=== PATIENT | female | born 1955 | race African-American/Black ===

== ENCOUNTER 2016-12-26 20:46 | Emergency (ER) | payer SELFPAY ==
[~2016-12-26] VITALS: Ht 165.1 cm; Wt 59.0 kg
--- NOTE | 2016-12-26 21:03 | PHYS DOC ---
General Chief Complaint: HYPERTENSION Stated Complaint: ELEV BLOOD PRESURE Time Seen by MD: 20:54 Source: patient Problems: History of Present Illness Initial Comments Patient here for headache and high blood pressure. Patient actually was seen by this physician previously for high blood pressure and headache. She is normally followed at [facility]. She said she was briefly started on carvedilol 3 days ago [place] 9 blood pressure. She says this morning she developed a headache parents located in the front frontal scalp. This persisted over the course of the day and really has not gotten worse, but is not change. She did take her blood pressure home is 188 for the top number. She does remember the bottom number. She had been given some clonidine during her last ER visit to use for blood pressure gr 180 systolic 110 diastolic, but she says she didn't take it because she didn't want to mix with a 5 mg, 325 mg Lortab she had taken at home for the headache. At this time, she says her headache is persistent. There is no visual or speech changes. There is no fever chills URI symptoms or cough. There's no chest pain or shortness of breath. She's had some nausea and decreased appetite today. She did try to eat earlier this evening and has vomited twice since. She's not had anything to eat or drink since. She has no abdominal pain. There is no change amount of bladder habits. She denies any focal extremity or neurologic complaints. Patient did take a Lortab at home for her headache as previously described. She wonders if this could've caused her vomiting. She did not take her previously prescribed clonidine for exacerbations blood pressure. She notes no other increasing or decreasing factors. There is no history of head injury or trauma. Patient's past medical issues" for hyperthyroidism as well as hypertension. She is on methimazole to suppress thyroid function and she's claims compliance. She is a nonsmoker and nonuser of ethanol. Allergies: Coded Allergies: No Known Drug Allergies (Unverified , 01/24/16) Past Medical History Medical History: hypertension, other Social History Smoker: non-smoker Alcohol: none Review of Systems All Other Systems: Reviewed and Negative Physical Exam General Appearance: WD/WN, no apparent distress Eyes: bilateral eye EOMI, bilateral eye PERRL, bilateral eye normal inspection Ear, Nose, Throat: normal ENT inspection, normal pharynx Neck: full range of motion, supple, normal inspection Respiratory: lungs clear, normal breath sounds, no respiratory distress Cardiovascular: regular rate, rhythm, no edema Gastrointestinal: non tender, soft, no organomegaly Back: no CVA tenderness, no vertebral tenderness Extremities: non-tender, normal inspection, no pedal edema Neurologic/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 Vitals are as noted. Blood pressure stable at this time, 163/80 time of physician evaluation. Pertinent findings on physical exam shows the head atraumatic normocephalic. Scalp is nontender. Pupils are equal reactive light accommodation intact. Ears and throat are clear. Neck is supple without adenopathy or JVD. Chest is clear cardiac vascular exam shows regular rate and rhythm without murmur. The abdomen is soft and nontender without masses, organomegaly, perineal findings. Back shows no CVA tenderness. Extremities show no rash, cyanosis, or edema. Neurologic patient awake alert oriented 4. Cranial nerves II through XII grossly intact. Strength 5 over 5 = system. There are no gross sensory deficits. She stands without difficulty and Romberg is negative. Remainder of physical exam is clinically unremarkable. Orders, Labs, Meds Old charts note the patient was seen here on the of last month for hypertension by this physician. A summary of MDM follows: "2340 Patient resting currently in the ED. After initial evaluation, the patient really had no focal signs or symptoms suggest anything other than a headache related to hypertension. She was neurologically intact and really had no end organ signs or symptoms, and I did not feel that any labs or x-rays were indicated. The patient received 0.2 mg clonidine as well as some hydrocodone. This helped her headache somewhat, initial recheck her pressure decreased to 178 systolic. She was still complaining of some headache, and so I opted to administer an additional 0.1 mg clonidine. This time, she's been asleep, resting quite comfortably. Her pressures decreased nicely to 162/92. Of some concerns that she had an elevated heart rate throughout her ED stay. I asked her about this. I concerns per day. She denies alcohol or drug use. She does not use energy drinks or energy shots. She does not drink copious caffeine. She says she's had heart rate problems before, not for some time. However, as we talk and I review her medications with her in terms of taking her blood pressure medicine home, she then indicates that she got a prescription filled for mestimazole today to help treat overactive thyroid which she had not mentioned to me before. She acknowledges that she forgot to mention that. She was supposed to the prescription filled 2 weeks ago but did not do so. This could certainly account for her elevated heart rate, and given that she really has no acute cardiac complaining at this time, no chest pain shortness of breath , think it's reasonable to have her start her antithyroid medication and for further workup at this time. Patient does voice understanding of the need to start a thyroid medication immediately. I asked her to starter dose tonight instead of waiting until tomorrow. Last continue her current home blood pressure medicine. I will give her some Lortab at home for headache. In addition , we'll prescribe 0.3 mg clonidine that she can use as needed should her blood pressure be greater than 180 systolic 110 diastolic. Last recheck her blood pressure twice daily, 12 hours apart, the same time each day. She will follow- up with her own physician, and she has an appointment to [facility] on November 30, to review her blood pressure medicine needs. Patient voices understanding this discharge plan, and I written these instructions out on a prescription blank as well. She also voices understanding of the need to start taking her thyroid medicine, or return to the ER sooner as needed if worse in any way. She looks well, no acute discomfort or distress, okay for discharge home at this time." She was also seen last month for URI and she was seen 3 times in 2059 for concussion, itching, and tension headache. 2219 Patient resting comfortable, sleeping in the ED. Her blood pressures continued to decrease without specific treatment. She says her headache is mildly improved. She's had no further nausea or vomiting and is able tolerate by mouth fluids, Sprite, in the ED. I discussed with her headache may well be related to an exacerbation of her blood pressure. I did reinforce to her, and we 'll write a prescription as well, that if her blood pressure does go over 180 at home systolic or 110 diastolic, she should take 0.3 mg of clonidine previously prescribed which she acknowledges that she has. She is also concerned that perhaps her lisinopril, which she's been on for 5 years, each her dose changed over time. I did encourage her bring that up with her own physician at the [facility]. She was planning to call for an appointment tomorrow for recheck and she is encouraged in this. She voices understanding need to follow up with primary care or return to the ER sooner as needed if worsening anyway. She looks well, no acute discomfort distress, able tolerate by mouth fluids without difficulty, with a stable blood pressure and okay for discharge home at this time. MATTEO NELSON MD Dec 26, 2016 21:03
[2016-12-26] MEDS: ONDANSETRON ODT 4 MG TAB.RAPDIS PO ONE (21:23)
[2016-12-26] MEDS: ACETAMINOPHEN 500 MG TABLET PO ONE (21:23)
[2016-12-26 22:40] VITALS: BP 153/80
== END 2016-12-26 22:40 | disposition home or self-care (01) ==
LOC: ER 20:50
DX: R51 Headache (principal); R11.2 Nausea with vomiting, unspecified; I10 Essential (primary) hypertension; E05.90 Thyrotoxicosis, unspecified without thyrotoxic crisis or storm
CPT/HCPCS: 99283; Q0162

== ENCOUNTER 2017-12-18 23:59 | Emergency (ER) | payer OTHER ==
[~2017-12-18] VITALS: Ht 165.1 cm; Wt 68.0 kg
[2017-12-18 23:59] VITALS: BP 144/77
[2017-12-19] MEDS ORDERED: NAPR-514 PO (00:52)
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
[2017-12-19] MEDS ORDERED: traMADol 50 MG TABLET PO ONE (01:15)
== END 2017-12-19 02:00 | disposition home or self-care (01) ==
LOC: ER 23:59
DX: M79.602 Pain in left arm (principal); I10 Essential (primary) hypertension; E03.9 Hypothyroidism, unspecified; V89.2XXA Person injured in unspecified motor-vehicle accident, traffic, initial encounter; Y93.89 Activity, other specified; Y99.8 Other external cause status; Y92.89 Other specified places as the place of occurrence of the external cause
CPT/HCPCS: 99283